=== PATIENT | male | born 1990 | race Caucasian/White ===

== ENCOUNTER 2019-03-06 11:07 | Observation (INO) ==
[2019-03-06] MEDS ORDERED: SODIUM CHLORIDE 0.9% 1000ML 2,000 ML IV ONE (11:35)
[2019-03-06 12:02] LABS: Basophils # (auto) 0.04 K/uL (0-0.2); Basophils % (auto) 0.4 %; Eosinophils # (auto) 0.06 K/uL (0-0.5); Eosinophils % (auto) 0.7 %; Hematocrit (blood only) 44.8 % (42-52); Hemoglobin 15.9 g/dL (14.0-18.0); Immature Granulocytes # (auto) 0.02 K/uL (0.00-0.02); Immature Granulocytes % (auto) 0.2 %; Lymphocytes % (auto) 20.6 %; Mean Corpuscular Hemoglobin 31.5 pg (25-34); Mean Corpuscular Hgb Conc 35.5 g/dL (32-36); Mean Corpuscular Volume 88.7 fL (80-100); Mean Platelet Volume 9.7 fL (7.4-10.4); Monocytes # (auto) 0.57 K/uL (0.11-0.59); Monocytes % (auto) 6.2 %; Neutrophils # (auto) 6.64 K/uL (1.4-6.5); Neutrophils % (auto) 71.9 %; Platelet Count 327 K/uL (130-400); RDW Coefficient of Variation 12.5 % (11.5-14.5); RDW Standard Deviation 39.7 fL (36.4-46.3); Red Blood Count 5.05 M/uL (4.7-6.1); White Blood Count 9.23 K/uL (4.8-10.8)
[2019-03-06 12:22] LABS: Albumin Level 4.4 gm/dl (3.4-5.0); BUN Creatinine Ratio 12.1 (10-20); Calcium 9.2 mg/dl (8.5-10.1); Creatinine Clr Calc Pharmacy 119.3 ml/min; Est GFR (African American) 107.7; Est GFR (Non-African American) 92.9; Potassium 3.8 mmol/L (3.5-5.1)
[2019-03-06 12:24] LABS: Albumin Globulin Ratio 1.2 (0.9-2); Bilirubin,Total 0.6 mg/dl (0.2-1); Globulin 3.6 gm/dl (2.5-4.0)
[2019-03-06] MEDS ORDERED: IOVERSOL 100ml IV PRN (13:01)
--- NOTE | 2019-03-06 13:19 | CT Scan Report ---
CT OF THE ABDOMEN AND PELVIS WITH CONTRAST CLINICAL HISTORY: Abdominal pain. GI bleed. Recent scope. COMPARISON STUDY: None. TECHNIQUE: Following IV administration of 93 mL of Optiray-320, axial images of the abdomen and pelvi s were obtained from the lung bases to the proximal femurs. Images were reviewed in the axial, sagitt al, and coronal planes. IV contrast was administered without complication. Automated exposure contro l was utilized for the study. A dose lowering technique was utilized adhering to the principles of A JORGE LUIS. CT DOSE: 993.50 mGycm FINDINGS: Lung bases are unremarkable. No pneumatosis, free air or portal venous gas is present. The liver, spleen, adrenal glands, kidneys and pancreas are normal. There is no biliary or pancreatic ermias damian dilatation. Caliber and wall thickness of small and large bowel are normal. No intraluminal contr ast extravasation is identified on this exam. The appendix is normal. There is no hydronephrosis. Harley or vasculature is patent. No suspicious osseous lesions are noted. There is no lymphadenopathy. IMPRESSION: Unremarkable CT of the abdomen and pelvis. ACT 112: Negative or not required by law. Electronically signed by: Leonel Ward M.D. 03/06/2019 1:17 PM
[2019-03-06] MEDS ORDERED: PANTOprazole 80 MG in DEXTROSE 5% 100 ML IV ONE (14:00)
--- NOTE | 2019-03-06 14:13 | Emergency Department Note ---
Entered by Kayla Tyson acting as a scribe for Tito Hoffmann DO History of Present Illness General Chief complaint: Rectal Bleed Stated complaint: BLOOD IN STOOL Source: patient History of Present Illness Onset (ago): day(s) 2 Location: head (rectal bleeding) Pain Consistency: + other (persistent) Quality: + other (rectal bleeding) Relieved By: + other (bowel movement relieved abdominal pain) Associated symptoms: + other (Positive blood around stool, straining while going to bathroom, dark stool, abdominal pain. Negative dysuria, polyuria, rhinorrhea.); no cough and no shortness of breath The patient is a 28 year old male presenting to the Emergency Department complaining of a persistent rectal bleeding starting 2 days ago. The patient reports that he noticed blood around his stool 2 days ago after a bowel movement. He states that he was straining to go to the bathroom during that episode. He explains that he was also nauseous at that time. He notes that he had lower abdominal pain 2 days ago and that having a bowel movement resolved his abdominal pain. 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 He states that he didnt strain during this bowel movement. He notes that he has an esophageal scope and biopsy done 1 week ago. The patient denies dysuria, polyuria, cough, rhinorrhea and shortness of breath. Home Medications Home Medications Medication Instructions Recorded Confirmed Type cetirizine 10 mg PO QAM 03/06/19 03/06/19 History pantoprazole [Protonix] 40 mg PO BIDM 03/06/19 03/06/19 History Allergies Allergy/AdvReac Type Severity Reaction Status Date / Time No Known Allergies Allergy Unverified 03/06/19 12:26 Past Med/Surg History Medical History Acid reflux Surgical History History of endoscopy Social History Preferred Language: [place] Feels Safe at Home: Yes Smoking Status: Never smoker Review of Systems See HPI for pertinent positives & negatives. and A total of 10 systems reviewed and were otherwise negative Physical Exam Vital Signs Vital Signs - 24 hr 03/06/19 11:18 03/06/19 11:57 03/06/19 12:53 Temperature 36.8 C Temperature Source Oral Pulse Rate 64 Pulse Rate [Right Finger] 80 Pulse Rhythm Regular Pulse Strength Normal Respiratory Rate 18 20 Respiratory Effort / Characteristics Non-Labored Spontaneous Non-Labored Respiratory Depth Normal Normal Respiratory Pattern Regular Blood Pressure 155/87 H Blood Pressure [Left Arm] 128/81 Blood Pressure Mean 109 Blood Pressure Mean [Left Arm] 96 Blood Pressure Position Sitting Pulse Oximetry 99 98 100 Oxygen Delivery Method Room Air Room Air Room Air Sepsis Recent Fever Within 48 Hours No Sepsis New/Unexplained Change in Mental Status No Sepsis Action Taken by Nursing No Action Required GENERAL: Patient is sitting up in bed. Alert, well nourished, no distress, non- toxic. EYE EXAM: normal conjunctiva. OROPHARYNX: no exudate, no erythema, lips, buccal mucosa, and tongue normal and mucous membranes are moist NECK: supple, no nuchal rigidity, no adenopathy, non-tender LUNGS: Clear to auscultation. Normal chest wall mechanics HEART: no murmurs, S1 normal and S2 normal ABDOMEN: abdomen soft, non-tender, normo-active bowel sounds, no masses, no rebound or guarding. RECTAL: Dark stool. Heme positive. BACK: Back is symmetrical on inspection and there is no deformity, no midline tenderness, no CVA tenderness. SKIN: no rashes and no bruising UPPER EXTREMITIES: upper extremities are grossly normal. LOWER EXTREMITIES: No pitting edema. NEURO EXAM: Normal sensorium, cranial nerves II-XII grossly intact, normal speech, no gross weakness of arms, no gross weakness of legs. Course Course ED COURSE: Vital signs were reviewed and showed hypertension. The patients medical record was reviewed The above diagnostic studies were performed and reviewed. ED treatments and interventions as stated above. 1131: The patient was evaluated in room B6. A complete history and physical examination was performed. 1230: I reevaluated the patient at this time. 1345: I discussed the patients case with Dr. Vincent GIBSON who recommends to keep the patient in the hospital. 1357: I discussed the patient's case with Dr. Юлия Veras hospitalist. He will evaluate the patient for further management. 1400: Upon reevaluation, I discussed my findings with the patient and he understands and agrees with the treatment plan. Based on the patients age, coexisting illnesses, exam and lab findings the decision to treat as an inpatient was made. The patient remained stable while under my care. The patient will be evaluated for further management. Administered Medications Ioversol (Optiray 320 100ml) 93 ml IV ONCE PRN PRN Reason: Interaction Checking Stop: 03/10/19 13:00 Last Admin: 03/06/19 13:02 Dose: 93 ml Documented by: [id number] Discontinued Medications Sodium Chloride (Nss 1000ml) 2,000 mls @ 999 mls/hr IV .Q2H1M ONE Stop: 03/06/19 13:35 Last Admin: 03/06/19 12:12 Dose: 999 mls/hr Documented by: [id number] Medical Decision Making Differential Diagnosis Differential diagnosis: Etiologies such as diverticulosis, AVM, coagulopathy, colitis, inflammatory bowel disease, malignancy, Kaitlynn-Early tear, esophagitis, peptic ulcer disease, variceal bleed, gastritis, epistaxis, fissure, hemorrhoids, aswell as others were entertained. Medical Records Attestation: I reviewed the patient's medical records. Home Medications Current Medication List: was personally reviewed by me Laboratory Data Attestation: I reviewed the patient's lab results. Result diagrams: 03/06/19 11:28 03/06/19 11:28 Lab Results 03/06/19 03/06/19 Range/Units 11:28 11:28 WBC 9.23 (4.8-10.8) K/uL RBC 5.05 (4.7-6.1) M/uL Hgb 15.9 (14.0-18.0) g/dL Hct 44.8 (42-52) % MCV 88.7 (80-100) fL MCH 31.5 (25-34) pg MCHC 35.5 (32-36) g/dL RDW Std Deviation 39.7 (36.4-46.3) fL RDW Coeff of John 12.5 (11.5-14.5) % Plt Count 327 (130-400) K/uL MPV 9.7 (7.4-10.4) fL Immature Gran % (Auto) 0.2 % Neut % (Auto) 71.9 % Lymph % (Auto) 20.6 % [place] % (Auto) 6.2 % Eos % (Auto) 0.7 % Baso % (Auto) 0.4 % Immature Gran # (Auto) 0.02 (0.00-0.02) K/uL Neut # (Auto) 6.64 H (1.4-6.5) K/uL Lymph # (Auto) 1.90 (1.2-3.4) K/uL [place] # (Auto) 0.57 (0.11-0.59) K/uL Eos # (Auto) 0.06 (0-0.5) K/uL Baso # (Auto) 0.04 (0-0.2) K/uL Sodium 138 (136-145) mmol/L Potassium 3.8 (3.5-5.1) mmol/L Chloride 105 (98-107) mmol/L Carbon Dioxide 27 (21-32) mmol/L Anion Gap 6.0 (3-11) BUN 13 (7-18) mg/dl Creatinine 1.08 (0.6-1.4) mg/dl Est Cr Clr Drug Dosing 119.3 ml/min Est GFR ( Amer) 107.7 Est GFR (Non-Af Amer) 92.9 BUN/Creatinine Ratio 12.1 (10-20) Glucose 107 H (70-99) mg/dl Calcium 9.2 (8.5-10.1) mg/dl Total Bilirubin 0.6 (0.2-1) mg/dl AST 10 L (15-37) U/L ALT 22 (12-78) U/L Alkaline Phosphatase 65 (45-117) U/L Total Protein 8.0 (6.4-8.2) gm/dl Albumin 4.4 (3.4-5.0) gm/dl Globulin 3.6 (2.5-4.0) gm/dl Albumin/Globulin Ratio 1.2 (0.9-2) Lipase 68 L (73-393) U/L Imaging Data Radiologist's Impression: Radiology results as stated below per my review and the radiologist's interpretation: CT OF THE ABDOMEN AND PELVIS WITH CONTRAST CLINICAL HISTORY: Abdominal pain. GI bleed. Recent scope. COMPARISON STUDY: None. TECHNIQUE: Following IV administration of 93 mL of Optiray-320, axial images of the abdomen and pelvis were obtained from the lung bases to the proximal femurs. Images were reviewed in the axial, sagittal, and coronal planes. IV contrast was administered without complication. Automated exposure control was utilized for the study. A dose lowering technique was utilized adhering to the principles of ALARA. CT DOSE: 993.50 mGycm FINDINGS: Lung bases are unremarkable. No pneumatosis, free air or portal venous gas is present. The liver, spleen, adrenal glands, kidneys and pancreas are normal. There is no biliary or pancreatic ductal dilatation. Caliber and wall thickness of small and large bowel are normal. No intraluminal contrast extravasation is identified on this exam. The appendix is normal. There is no hydronephrosis. Major vasculature is patent. No suspicious osseous lesions are noted. There is no lymphadenopathy. IMPRESSION: Unremarkable CT of the abdomen and pelvis. ACT 112: Negative or not required by law. Electronically signed by: Leonel Ward M.D. 03/06/2019 1:17 PM Blood Pressure Blood Pressure Findings: Elevated blood pressure Blood Pressure Disposition: further management by hospitalist LILIAN Narrative Patient is a 28-year-old male who presents the ER after having a hard bowel movement on Tuesday and having bright red blood per rectum. Gradually the stool has become darker and notes dark tarry stools now. IV was established blood work was obtained. Labs show no significant leukocytosis or anemia. BMP was unremarkable. LFTs bilirubin and lipase is unremarkable. Of note he had an upper endoscopy performed last week which was secondary to food bolus. He does believe that there were biopsies taken but does not believe that anything was dilated. Did request records but have not received them. With the dark tarry stools, heme positive and recent scope discussed with GI and they recommended observation consequently discussed with the hospitalist. Patient was updated bedside. Impression & Plan Upper gastrointestinal bleed, Abdominal pain Discharge Plan Visit Data Chief Complaint: Rectal Bleed Stated Complaint: BLOOD IN STOOL ED Provider: Tito Hoffmann Discharge Problem: Upper gastrointestinal bleed, Abdominal pain Patient Disposition: Being Evaluated by Hospitalist Forms Stand Alone Forms: 51edu Prescriptions Prescriptions: No Action cetirizine 10 mg Tablet 10 mg PO QAM RF: 0 pantoprazole [Protonix] 40 mg Tablet,Delayed Release (Dr/Ec) 40 mg PO BIDM RF: 0 Referrals Referrals: PCP,NO [Primary Care Provider] - Discharge Problem: Abdominal pain Qualifiers: Abdominal location: unspecified location Qualified Code(s): R10.9 - Unspecified abdominal pain The scribe's documentation has been prepared under my direction and personally reviewed by me in its entirety. I confirm that the note above accurately reflects all work, treatment, procedures, and medical decision making performed by me.
--- NOTE | 2019-03-06 14:54 | Gastrointestinal Consultation ---
Date of Consultation March 06, 2019 Assessment & Plan (1) Upper gastrointestinal bleed: 28 year old male presenting with melanotic stoosl, 4 episodes following EGD w/ food bolus and dilation at outside hospital. He is hemodynamically stable w/ stable HGB and without BUN elevation Pt is already admitted for observation Clear liquids NPO after mignight IV PPI bolus and drip Trend HGB Monitor and document GI output Transfuse PRN HGB < 8 Will follow. Thank you for allowing us to participate in the care of this patient. Please call with any acute changes, questions or concerns. Please see addendum below with additional recommendation from my supervising physician. Supervising Physician Co-Signing Physician Notes I performed a history and physical examination of the patient, including specifically on physical exam - soft, nontender abdomen. I have discussed the patient's management with Liv. Please refer to the nurse practitioner's note for the documented findings and plan of care. 28 yrs old male patient presenting with melena post recent EGD with dilation. Current H/H stable. Plan for EGD tomorrow. History of Present Illness Reason for Consultation: melena Requesting Physician: Shun Attending Physician: Юлия History of Present Illness 28 year old male without any past medical history who presents to [facility] w/ melena x 3 episodes starting today. Pt was seen and evaluated, chart reviewed. Family at [facility]. Notes about 1 week ago he presented to [place] with a food bolus. He underwent EGD w/ removal and dilation by Dr. Romano. Was discharged home without admission. Was started on a PPI. Three days ago developed epigastric abd pain, mild nausea but no vomiting. Suggests last evening had urge for BM and noted dark, tarry stool. Has since passed three episdoes of melanotic stools. No lightheadedness, dizziness, CP, SOB. Allergies Allergy/AdvReac Type Severity Reaction Status Date / Time No Known Allergies Allergy Unverified 03/06/19 12:26 Home Medications Home Medications Medication Instructions Recorded Confirmed Type cetirizine 10 mg PO QAM 03/06/19 03/06/19 History pantoprazole [Protonix] 40 mg PO BIDM 03/06/19 03/06/19 History Patient History Medical History Acid reflux Surgical History History of endoscopy Social History Preferred Language: Occitan Beliefs That Will Affect Care: None Current Living Situation: Parent Other Information That Helps Us Care for You: No Feels Safe at Home: Yes Safety Concerns: Feels Safe At This Time Smoking Status: Never smoker Hx Alcohol Use: Yes Alcohol type: beer Hx Substance Use: No Review of Systems 2 Constitutional: no fever and no chills Respiratory: no cough and no dyspnea Cardiovascular: no chest pain and no dyspnea on exertion Gastrointestinal: + melena; no abdominal pain, no nausea, no vomiting and no blood in stools Physical Exam Constitutional: well developed and well nourished; no acute distress Respiratory: normal respiratory effort, lungs clear to auscultation Cardiovascular: Rate/Rhythm: regular rate and regular rhythm Gastrointestinal (Abdomen): normal bowel sounds, soft, nontender, no hepatosplenomegaly Skin: no rashes, warm and dry Results & Data Vital Signs (Past 12 Hours) Vital Signs Temp Pulse Pulse Resp BP BP Pulse Ox 03/06/19 12:53 80 20 128/81 100 03/06/19 11:57 98 03/06/19 11:18 36.8 C 64 18 155/87 H 99 Laboratory Results 03/06/19 03/06/19 Range/Units 11:28 11:28 WBC 9.23 (4.8-10.8) K/uL RBC 5.05 (4.7-6.1) M/uL Hgb 15.9 (14.0-18.0) g/dL Hct 44.8 (42-52) % MCV 88.7 (80-100) fL MCH 31.5 (25-34) pg MCHC 35.5 (32-36) g/dL RDW Std Deviation 39.7 (36.4-46.3) fL RDW Coeff of John 12.5 (11.5-14.5) % Plt Count 327 (130-400) K/uL MPV 9.7 (7.4-10.4) fL Immature Gran % (Auto) 0.2 % Neut % (Auto) 71.9 % Lymph % (Auto) 20.6 % [place] % (Auto) 6.2 % Eos % (Auto) 0.7 % Baso % (Auto) 0.4 % Immature Gran # (Auto) 0.02 (0.00-0.02) K/uL Neut # (Auto) 6.64 H (1.4-6.5) K/uL Lymph # (Auto) 1.90 (1.2-3.4) K/uL [place] # (Auto) 0.57 (0.11-0.59) K/uL Eos # (Auto) 0.06 (0-0.5) K/uL Baso # (Auto) 0.04 (0-0.2) K/uL Sodium 138 (136-145) mmol/L Potassium 3.8 (3.5-5.1) mmol/L Chloride 105 (98-107) mmol/L Carbon Dioxide 27 (21-32) mmol/L Anion Gap 6.0 (3-11) BUN 13 (7-18) mg/dl Creatinine 1.08 (0.6-1.4) mg/dl Est Cr Clr Drug Dosing 119.3 ml/min Est GFR ( Amer) 107.7 Est GFR (Non-Af Amer) 92.9 BUN/Creatinine Ratio 12.1 (10-20) Glucose 107 H (70-99) mg/dl Calcium 9.2 (8.5-10.1) mg/dl Total Bilirubin 0.6 (0.2-1) mg/dl AST 10 L (15-37) U/L ALT 22 (12-78) U/L Alkaline Phosphatase 65 (45-117) U/L Total Protein 8.0 (6.4-8.2) gm/dl Albumin 4.4 (3.4-5.0) gm/dl Globulin 3.6 (2.5-4.0) gm/dl Albumin/Globulin Ratio 1.2 (0.9-2) Lipase 68 L (73-393) U/L
[2019-03-06] MEDS: PANTOprazole 40 MG in DEXTROSE 5% 100 ML IV SCH ×2 (14:55→20:39)
--- NOTE | 2019-03-06 14:58 | History & Physical Report ---
Date of Service March 06, 2019 Assessment & Plan (1) Melena: 28-year-old male with history of asthma presenting with melena which started this morning. MELENA, POSSIBLE UPPER GI BLEED No history of gastritis, ulcers, inflammatory bowel disease; denies NSAID use, not on aspirin,or any anticoagulation Status post endoscopy a week ago for food bolus, performed at [facility], mild inflammation was seen, but biopsy performed was unrevealing as reported to patient over the phone Possible etiologies of GI bleed; Kaitlynn-Early tear, bleeding from biopsy site Currently hemodynamically stable Hemoglobin 15 CT abdomen and pelvis:Unremarkable CT of the abdomen and pelvis. will keep patient n.p.o., start IV Protonix drip, D5 NSS + potassium, H&H every 6 hours Discussed with GI service, agree with above plan of care, possible EGD during this admission Monitor in Med/Surg with telemetry HISTORY OF ASTHMA Not in exacerbation Not using bronchodilators for the past year DVT prophylaxis SCDs only in light of possible GI bleed CODE STATUS full code confirmed with patient Disposition Anticipate discharge to home medically stable, cleared by GI Case discussed with patient and his mother at the bedside in detail, and at length All questions answered They are understanding, comfortable, agreeable with the plan of care History of Present Illness 28-year-old male with history of asthma presenting with melena which started this morning. History obtained from patient and his mother at the bedside. Patient presented to the [place] emergency room last week for a food bolus and subsequently underwent an EGD. As per patient and his mother who supplemented the history, a piece of meat was retrieved, and inflammation was noted but otherwise the esophagus and stomach looked fine. A biopsy was also performed, and patient was informed that it was 'negative'. Patient was discharged from the hospital and was doing fine since the procedure until 2 days ago when the patient started to have intermittent epigastric pain with no other associated symptoms. This morning, the patient noticed black stools with 2 bowel movements. Denies pain with bowel movement , diarrhea. No fevers no chills, no nausea vomiting, no loss of appetite. Denies any other symptoms. The patient was received hemodynamically stable at the ER. Hemoglobin is 15. CT abdomen and pelvis unrevealing. Hemoccult positive as per ER physician. He was started on Protonix drip. On exam, the patient is seen sitting up in bed, comfortable, not in distress. Denies active abdominal pain, nausea. He had a bowel movement at the emergency room which was still black. No other symptoms Primary Care Provider: NO PCP Allergies Allergy/AdvReac Type Severity Reaction Status Date / Time No Known Allergies Allergy Unverified 03/06/19 12:26 Home Medications Home Medications Medication Instructions Recorded Confirmed Type cetirizine 10 mg PO QAM 03/06/19 03/06/19 History pantoprazole [Protonix] 40 mg PO BIDM 03/06/19 03/06/19 History Past Med/Surg History Medical History Acid reflux Surgical History History of endoscopy Social History Preferred Language: [place] Feels Safe at Home: Yes Smoking Status: Never smoker Review of Systems Review of Systems: All systems reviewed & are unremarkable except as noted in HPI & below Physical Exam Physical Exam: General- oriented x 3, not in distress, speaks in sentences with no effort or accessory muscle use Head- atraumatic Eyes- PERRL, EOMI, anicteric ENT- oropharynx clear Neck- supple, no JVD, no adenopathy, no thyromegaly; carotids +2/2, no bruits appreciated Lungs- clear to auscultation bilaterally, no rales/wheezes Heart- normal rate, regular rhythm; no murmur, no gallop, no rub appreciated Abdomen- normal bowel sounds, nondistended, soft, nontender, no masses or hepatosplenomegaly Extremities- no pretibial edema, no calf tenderness; peripheral pulses intact Neuro- alert, oriented x 3; CN 2-12 grossly intact; motor 5/5 bilaterally;sensation 100% on all extremities; no other gross focal neurologic deficits Skin- warm & dry Results & Data Vital Signs (Past 12 Hours) Vital Signs Temp Pulse Pulse Resp BP BP Pulse Ox 03/06/19 12:53 80 20 128/81 100 03/06/19 11:57 98 03/06/19 11:18 36.8 C 64 18 155/87 H 99 Laboratory Results Laboratory Results - last 24 hr 01/21/20 01/21/20 11:28 11:28 WBC 9.23 RBC 5.05 Hgb 15.9 Hct 44.8 MCV 88.7 MCH 31.5 MCHC 35.5 RDW Std Deviation 39.7 RDW Coeff of John 12.5 Plt Count 327 MPV 9.7 Immature Gran % (Auto) 0.2 Neut % (Auto) 71.9 Lymph % (Auto) 20.6 [place] % (Auto) 6.2 Eos % (Auto) 0.7 Baso % (Auto) 0.4 Immature Gran # (Auto) 0.02 Neut # (Auto) 6.64 H Lymph # (Auto) 1.90 [place] # (Auto) 0.57 Eos # (Auto) 0.06 Baso # (Auto) 0.04 Sodium 138 Potassium 3.8 Chloride 105 Carbon Dioxide 27 Anion Gap 6.0 BUN 13 Creatinine 1.08 Est Cr Clr Drug Dosing 119.3 Est GFR ( Amer) 107.7 Est GFR (Non-Af Amer) 92.9 BUN/Creatinine Ratio 12.1 Glucose 107 H Calcium 9.2 Total Bilirubin 0.6 AST 10 L ALT 22 Alkaline Phosphatase 65 Total Protein 8.0 Albumin 4.4 Globulin 3.6 Albumin/Globulin Ratio 1.2 Lipase 68 L Code Status & VTE Plan VTE Prophylaxis Plan VTE Prophylaxis will be ordered: Yes
[2019-03-06] MEDS ORDERED: ONDANSETRON INJ 2 MG/ML 2 ML VIAL IV PRN (15:45)
[2019-03-06] MEDS: D5NSS + 20MEQ KCL 20 MEQ/1,000 ML BAG IV SCH (16:49)
[2019-03-06 17:15] LABS: Hemoglobin 14.9 g/dL (14.0-18.0)
[2019-03-06 18:11] LABS: Appearance Urine Clear (Clear); Bilirubin Urine Negative (Negative); Blood Urine Negative (Negative); Color Urine Yellow; Glucose Urine UA Negative (Negative); Ketones Urine Negative (Negative); Leukocyte Esterase Urine Negative (Negative); Nitrite Urine Negative (Negative); Protein Urine Negative (Negative); Specific Gravity Urine 1.022 (1.000-1.030); Urobilinogen Urine Negative (Negative); pH Urine 7.5 (4.5-7.5)
[2019-03-06 23:10] LABS: Hematocrit (blood only) 40.2 % (42-52); Hemoglobin 14.1 g/dL (14.0-18.0)
[2019-03-07] MEDS: D5NSS + 20MEQ KCL 20 MEQ/1,000 ML BAG IV SCH ×2 (00:48→08:51)
[2019-03-07] MEDS: PANTOprazole 40 MG in DEXTROSE 5% 100 ML IV SCH ×3 (01:43→11:23)
[2019-03-07 05:51] LABS: Hematocrit (blood only) 41.6 % (42-52); Hemoglobin 14.5 g/dL (14.0-18.0)
--- NOTE | 2019-03-07 09:15 | Gastroenterology Progress Note ---
Date of Service March 07, 2019 Assessment & Plan (1) Upper gastrointestinal bleed: 28 year old male presenting with melanotic stoosl, 4 episodes following EGD w/ food bolus and dilation at outside hospital. He is hemodynamically stable w/ stable HGB and without BUN elevation NPO EGD today Will follow. Thank you for allowing us to participate in the care of this patient. Please call with any acute changes, questions or concerns. Please see addendum below with additional recommendation from my supervising physician. Supervising Physician Co-Signing Physician Notes I performed a history and physical examination of the patient, including specifically on physical exam - soft, nontender abdomen. I have discussed the patient's management with Liv. Please refer to the nurse practitioner's note for the documented findings and plan of care. EGD today. Subjective Feeling well No acute events No nausea/vomiting No further BM HGB stable Review of Systems Constitutional: no fever Respiratory: no cough and no dyspnea Cardiovascular: no chest pain and no radiating jaw, neck or arm pain Gastrointestinal: no abdominal pain and no melena Physical Exam Constitutional: well developed and well nourished; no acute distress Respiratory: normal respiratory effort, lungs clear to auscultation Cardiovascular: Rate/Rhythm: regular rate and regular rhythm Gastrointestinal (Abdomen): normal bowel sounds, soft, nontender, no hepatosplenomegaly Skin: no rashes, warm and dry Results & Data Vital Signs (Past 12 Hours) Vital Signs Temp Pulse Pulse Resp BP Pulse Ox 03/07/19 07:59 57 L 03/07/19 06:38 36.7 C 60 20 118/74 98 03/07/19 03:48 36.4 C L 50 L 20 122/75 99 03/07/19 00:00 36.8 C 51 L 50 L 19 105/65 97 Laboratory Results 03/07/19 03/06/19 03/06/19 Range/Units 05:25 22:45 18:00 WBC (4.8-10.8) K/uL RBC (4.7-6.1) M/uL Hgb 14.5 14.1 (14.0-18.0) g/dL Hct 41.6 L 40.2 L (42-52) % MCV (80-100) fL MCH (25-34) pg MCHC (32-36) g/dL RDW Std Deviation (36.4-46.3) fL RDW Coeff of John (11.5-14.5) % Plt Count (130-400) K/uL MPV (7.4-10.4) fL Immature Gran % (Auto) % Neut % (Auto) % Lymph % (Auto) % [place] % (Auto) % Eos % (Auto) % Baso % (Auto) % Immature Gran # (Auto) (0.00-0.02) K/uL Neut # (Auto) (1.4-6.5) K/uL Lymph # (Auto) (1.2-3.4) K/uL [place] # (Auto) (0.11-0.59) K/uL Eos # (Auto) (0-0.5) K/uL Baso # (Auto) (0-0.2) K/uL Sodium (136-145) mmol/L Potassium (3.5-5.1) mmol/L Chloride (98-107) mmol/L Carbon Dioxide (21-32) mmol/L Anion Gap (3-11) BUN (7-18) mg/dl Creatinine (0.6-1.4) mg/dl Est Cr Clr Drug Dosing ml/min Est GFR ( Amer) Est GFR (Non-Af Amer) BUN/Creatinine Ratio (10-20) Glucose (70-99) mg/dl Calcium (8.5-10.1) mg/dl Total Bilirubin (0.2-1) mg/dl AST (15-37) U/L ALT (12-78) U/L Alkaline Phosphatase (45-117) U/L Total Protein (6.4-8.2) gm/dl Albumin (3.4-5.0) gm/dl Globulin (2.5-4.0) gm/dl Albumin/Globulin Ratio (0.9-2) Lipase (73-393) U/L Urine Color Yellow Urine Appearance Clear (Clear) Urine pH 7.5 (4.5-7.5) Ur Specific [place] 1.022 (1.000-1.030) Urine Protein Negative (Negative) Urine Glucose (UA) Negative (Negative) Urine Ketones Negative (Negative) Urine Blood Negative (Negative) Urine Nitrite Negative (Negative) Urine Bilirubin Negative (Negative) Urine Urobilinogen Negative (Negative) Ur Leukocyte Esterase Negative (Negative) 03/06/19 03/06/19 03/06/19 Range/Units 16:47 11:28 11:28 WBC 9.23 (4.8-10.8) K/uL RBC 5.05 (4.7-6.1) M/uL Hgb 14.9 15.9 (14.0-18.0) g/dL Hct 43.0 44.8 (42-52) % MCV 88.7 (80-100) fL MCH 31.5 (25-34) pg MCHC 35.5 (32-36) g/dL RDW Std Deviation 39.7 (36.4-46.3) fL RDW Coeff of John 12.5 (11.5-14.5) % Plt Count 327 (130-400) K/uL MPV 9.7 (7.4-10.4) fL Immature Gran % (Auto) 0.2 % Neut % (Auto) 71.9 % Lymph % (Auto) 20.6 % [place] % (Auto) 6.2 % Eos % (Auto) 0.7 % Baso % (Auto) 0.4 % Immature Gran # (Auto) 0.02 (0.00-0.02) K/uL Neut # (Auto) 6.64 H (1.4-6.5) K/uL Lymph # (Auto) 1.90 (1.2-3.4) K/uL [place] # (Auto) 0.57 (0.11-0.59) K/uL Eos # (Auto) 0.06 (0-0.5) K/uL Baso # (Auto) 0.04 (0-0.2) K/uL Sodium 138 (136-145) mmol/L Potassium 3.8 (3.5-5.1) mmol/L Chloride 105 (98-107) mmol/L Carbon Dioxide 27 (21-32) mmol/L Anion Gap 6.0 (3-11) BUN 13 (7-18) mg/dl Creatinine 1.08 (0.6-1.4) mg/dl Est Cr Clr Drug Dosing 119.3 ml/min Est GFR ( Amer) 107.7 Est GFR (Non-Af Amer) 92.9 BUN/Creatinine Ratio 12.1 (10-20) Glucose 107 H (70-99) mg/dl Calcium 9.2 (8.5-10.1) mg/dl Total Bilirubin 0.6 (0.2-1) mg/dl AST 10 L (15-37) U/L ALT 22 (12-78) U/L Alkaline Phosphatase 65 (45-117) U/L Total Protein 8.0 (6.4-8.2) gm/dl Albumin 4.4 (3.4-5.0) gm/dl Globulin 3.6 (2.5-4.0) gm/dl Albumin/Globulin Ratio 1.2 (0.9-2) Lipase 68 L (73-393) U/L Urine Color Urine Appearance (Clear) Urine pH (4.5-7.5) Ur Specific [place] (1.000-1.030) Urine Protein (Negative) Urine Glucose (UA) (Negative) Urine Ketones (Negative) Urine Blood (Negative) Urine Nitrite (Negative) Urine Bilirubin (Negative) Urine Urobilinogen (Negative) Ur Leukocyte Esterase (Negative)
[2019-03-07 11:08] LABS: Hematocrit (blood only) 43.2 % (42-52)
--- NOTE | 2019-03-07 12:15 | Anesthesiology Consultation ---
Date of Service March 07, 2019 Assessment & Plan (1) Encounter for pre-operative examination: Chart Review Chart Review: Acceptable Risk for Surgery and Patient NOT seen in Pre Admission Testing Consults Requested none History Surgery Operation Date: 03/07/19 15:30 Proposed Procedures p Esophagogastroduodenoscopy Dr Hinkle - Lashon Hinkle MD Height/Weight Height: 5 ft 9 in Weight: 99.8 kg Allergies Allergy/AdvReac Type Severity Reaction Status Date / Time No Known Allergies Allergy Unverified 03/06/19 12:26 Medications Home Medications Medication Instructions Recorded Confirmed Last Taken cetirizine 10 mg PO QAM 03/06/19 03/06/19 03/06/19 pantoprazole [Protonix] 40 mg PO BIDM 03/06/19 03/06/19 03/06/19 Active Medications Generic Name Dose Route Start Last Admin Trade Name Freq PRN Reason Stop Dose Admin Pantoprazole Sodium 40 mg/ 100 mls @ 20 mls/hr 03/06/19 14:15 03/07/19 11:23 Dextrose IV 04/05/19 14:14 20 mls/hr Q5H CHRISTEL Administration Potassium Chloride/Dextrose/Sod Cl 20 meq in 1,000 mls @ 125 mls/hr 03/06/19 16:00 03/07/19 08:51 D5nss + 20meq Kcl IV 04/05/19 15:59 125 mls/hr .Q8H CHRISTEL Administration Past Medical History Medical History Acid reflux Past Surgical History Surgical History History of endoscopy Social History Smoking Status: Never smoker Hx Alcohol Use: Yes Alcohol type: beer alcohol intake frequency: a few times a month Hx Substance Use: No Physical Exam Vital Signs Last Vital Signs Temp 36.7 C 03/07/19 06:38 Pulse 57 L 03/07/19 07:59 Resp 20 03/07/19 06:38 BP 118/74 03/07/19 06:38 Pulse Ox 98 03/07/19 06:38 Testing Laboratory Results 03/07/19 10:54 03/06/19 11:28 Urine Color Yellow 03/06/19 18:00 Urine Appearance Clear (Clear) 03/06/19 18:00 Urine pH 7.5 (4.5-7.5) 03/06/19 18:00 Ur Specific [place] 1.022 (1.000-1.030) 03/06/19 18:00 Urine Protein Negative (Negative) 03/06/19 18:00 Urine Glucose (UA) Negative (Negative) 03/06/19 18:00 Urine Ketones Negative (Negative) 03/06/19 18:00 Urine Nitrite Negative (Negative) 03/06/19 18:00 Ur Leukocyte Esterase Negative (Negative) 03/06/19 18:00
[2019-03-07] MEDS ORDERED: ATROPINE SULFATE 0.1 MG/ML 10ML SYR IV PRN (12:16)
[2019-03-07] MEDS ORDERED: ePHEDrine sulfate 50 MG/ML AMP IV PRN (12:16)
[2019-03-07 12:17] VITALS: TEMP 97.7
[2019-03-07] MEDS ORDERED: MIDAZOLAM HCL 1 MG/ML 2ML VIAL ONE (12:37)
[2019-03-07] MEDS ORDERED: LIDOCAINE HCL 2% 2 ML VIAL/AMP(20MG/ML) INFIL ONE (12:41)
[2019-03-07] MEDS ORDERED: PROPOFOL IV EMULSION 10 MG/ML 20 ML VIAL IV ONE (12:42)
[2019-03-07] MEDS ORDERED: ONDANSETRON INJ 2 MG/ML 2 ML VIAL ONE (12:43)
--- NOTE | 2019-03-07 12:45 | History & Physical Bridge Note ---
Date of Service March 07, 2019 History & Physical Bridge Note I have examined the patient, reviewed the History & Physical and in the interval since the performance of the History & Physical I have noted the following changes of clinical significance: no changes noted
--- NOTE | 2019-03-07 13:09 | GI REPORT ---
Patient Name: Arun Echols Procedure Date: 03/07/2019 12:47 PM Date of : 1990 Admit Type: Inpatient Age: 28 Gender: Male Attending MD: Lashon Hinkle MD Procedure: Upper GI endoscopy Providers: Lashon Hinkle MD Referring MD: Oziel Sanders Indications: Melena Medicines: Propofol per Anesthesia Complications: No immediate complications. Estimated Blood Loss: Estimated blood loss: none. Procedure: Pre-Anesthesia Assessment: - Prior to the procedure, a History and Physical was performed, and patient medications, allergies and sensitivities were reviewed. The patient's tolerance of previous anesthesia was reviewed. - The risks and benefits of the procedure and the sedation options and risks were discussed with the patient. All questions were answered and informed consent was obtained. - Patient identification and proposed procedure were verified prior to the procedure by the physician and the nurse. The procedure was verified in the procedure room. - Pre-procedure physical examination revealed no contraindications to sedation. After obtaining informed consent, the endoscope was passed under direct vision. Throughout the procedure, the patient's blood pressure, pulse, and oxygen saturations were monitored continuously. The Endoscope was introduced through the mouth, and advanced to the second part of duodenum. The upper GI endoscopy was accomplished without difficulty. The patient tolerated the procedure well. Findings: Mucosal changes including ringed esophagus and longitudinal furrows were found in the entire esophagus. The entire examined stomach was normal. The duodenal bulb and second portion of the duodenum were normal. Impression: - No evidence of upper GI bleeding. - Esophageal mucosal changes suggestive of eosinophilic esophagitis. - Normal stomach. - Normal duodenal bulb and second portion of the duodenum. - No specimens collected. Recommendation: - [facility]. - Schedule a colonoscopy as OP. - Recall GI if needed. Lashon Hinkle MD 03/07/2019 1:09:02 PM This report has been signed electronically. Note Initiated On: 03/07/2019 12:47 PM Number of Addenda: 0 I attest to the content of the Intraoperative Record and orders documented therein, exceptions below {[id number]}
[2019-03-07 13:42] VITALS: O2SAT 99
[2019-03-07 13:43] VITALS: BP 128/68; PULSE 83
--- NOTE | 2019-03-07 14:29 | Hospitalist Progress Note ---
Date of Service March 07, 2019 Assessment & Plan (1) GI bleed: Patient presented with melena. EGD performed last week for food impaction. H&H stable. Hemodynamically stable. EGD performed today did not show any upper GI pathology. May have had esophageal tear related to food impaction. Outpatient colonoscopy recommended. (2) DVT prophylaxis: Low risk for VTE per IMPROVE Risk Assessment Model. VTE prophylaxis not indicated. (3) Discharge planning issues: Discharged home. Patient is arranging to see a new PCP. He was asked to make an appointment to be seen within 1 week and to have a H&H rechecked at that time. Subjective Recheck for suspected GI bleed. Patient seen in their room around 1020 and reassessed in the afternoon. No abdominal pain, nausea, vomiting, melena, hematochezia. EGD did not show any upper GI pathology. Physical Exam Constitutional: no acute distress Respiratory: no respiratory distress Auscultation: lungs clear to auscultation bilaterally Cardiovascular: Rate/Rhythm: regular rate and regular rhythm Heart Sounds: no gallop, no murmur and no cardiac rub Vessels: no JVD Extremities: no calf tenderness and no edema Gastrointestinal (Abdomen): normal bowel sounds, soft, nontender, no hepatosplenomegaly Skin: no rashes, warm and dry Psychiatric: Orientation: alert and oriented x 3 Results & Data Vital Signs (Past 12 Hours) Vital Signs Temp Pulse Pulse Resp BP Pulse Ox 03/07/19 13:42 83 16 128/68 99 03/07/19 13:30 63 16 118/83 99 03/07/19 13:12 50 L 16 118/61 96 03/07/19 12:14 36.5 C 57 L 16 138/89 99 03/07/19 07:59 57 L 03/07/19 06:38 36.7 C 60 20 118/74 98 03/07/19 03:48 36.4 C L 50 L 20 122/75 99 Laboratory Results Hemoglobin 14.5
--- NOTE | 2019-03-07 14:38 | Anesthesiology Progress Note ---
Date of Service March 07, 2019 Anesthesia Post Procedure Vital Signs Vital Signs: Temp Pulse Pulse Resp BP BP Pulse Ox 03/07/19 13:42 83 16 128/68 99 03/07/19 13:30 63 16 118/83 99 03/07/19 13:12 50 L 16 118/61 96 03/07/19 12:14 36.5 C 57 L 16 138/89 99 03/07/19 07:59 57 L 03/07/19 06:38 36.7 C 60 20 118/74 98 03/07/19 03:48 36.4 C L 50 L 20 122/75 99 03/07/19 00:00 36.8 C 51 L 50 L 19 105/65 97 03/06/19 19:11 36.9 C 56 L 16 143/83 H 99 03/06/19 17:35 61 03/06/19 15:36 36.8 C 58 L 16 125/83 95 03/06/19 15:10 61 21 98 03/06/19 15:01 71 20 99 03/06/19 15:00 69 19 124/82 98 03/06/19 14:50 68 22 98 03/06/19 14:40 66 16 99 03/06/19 14:39 72 19 136/83 99 Transfer of Care Handoff Completed per policy Notes Mental Status: alert / awake / arousable Patient Amnestic to Procedure: Yes Nausea / Vomiting: adequately controlled Pain: adequately controlled Airway Patency, RR, SpO2: stable & adequate BP & HR: stable & adequate Hydration State: stable & adequate Anesthetic Complications: no major complications apparent and Pt Satisfied with anesthetic care
--- NOTE | 2019-03-08 06:27 | Discharge Summary ---
Date of Service March 08, 2019 Admission HPI Per Admitting Provider 28-year-old male with history of asthma presenting with melena which started this morning. History obtained from patient and his mother at the bedside. Patient presented to the [facility] emergency room last week for a food bolus and subsequently underwent an EGD. As per patient and his mother who supplemented the history, a piece of meat was retrieved, and inflammation was noted but otherwise the esophagus and stomach looked fine. A biopsy was also performed, and patient was informed that it was 'negative'. Patient was discharged from the hospital and was doing fine since the procedure until 2 days ago when the patient started to have intermittent epigastric pain with no other associated symptoms. This morning, the patient noticed black stools with 2 bowel movements. Denies pain with bowel movement , diarrhea. No fevers no chills, no nausea vomiting, no loss of appetite. Denies any other symptoms. The patient was received hemodynamically stable at the ER. Hemoglobin is 15. CT abdomen and pelvis unrevealing. Hemoccult positive as per ER physician. He was started on Protonix drip. On exam, the patient is seen sitting up in bed, comfortable, not in distress. Denies active abdominal pain, nausea. He had a bowel movement at the emergency room which was still black. No other symptoms Principal Diagnosis GI bleed Discharge Data Allergies Allergy/AdvReac Type Severity Reaction Status Date / Time No Known Allergies Allergy Unverified 03/06/19 12:26 Consultations 03/06/19 14:02 Consult Gastroenterology Stat ED Decision to Admit Stat 03/06/19 15:45 Consult Gastroenterology Routine Procedures Performed Operation Date: 03/07/19 15:30 Actual Procedures p Esophagogastroduodenoscopy - Lashon Hinkle MD Ordered Studies 03/06/19 11:35 CT abd pelvis IV con only Stat Hospital Course (1) GI bleed: Patient presented with melena. EGD performed last week for food impaction. H&H stable (15.9 --> 15.0). Remained hemodynamically stable. GI consulted. EGD performed 03/07/19 did not show any upper GI pathology. May have had esophageal tear related to food impaction. Outpatient colonoscopy recommended. (2) DVT prophylaxis: Low risk for VTE per IMPROVE Risk Assessment Model. VTE prophylaxis not indicated. (3) Discharge planning issues: Discharged home. Patient is arranging to see a new PCP. He was asked to make an appointment to be seen within 1 week and to have a H&H rechecked at that time. Total Time Total Time Spent Total Time Spent (In Minutes): 30 Discharge Plan Discharge Items Patient Disposition: Home - Self-Care Reason For Visit: dark stools, possible gastrointestinal bleeding Discharge Diagnosis: dark stools, possible gastrointestinal bleeding Condition on Discharge: Good Activity: Resume your previous activity Non-emergency contact: Primary Care Provider, Hospitalist and Beam Warper Call non-emergency contact if: you have any medication questions and your symptoms worsen Follow-up/Referrals: PCP,NO [Primary Care Provider] - Diet: Regular Addtl Attending Provider Instructions: MEDICATION CHANGES: Do not use any aspirin products or anti-inflammatory medicines like ibuprofen (Advil, Motrin) or naproxen (Aleve). SUMMARY OF TEST RESULTS: EGD (upper endoscopy) was normal. No ulcers or other problems were seen. RECOMMENDATIONS FOR FOLLOW-UP: Outpatient colonoscopy recommended. Please schedule appointment with your primary care provider within 1 week for recheck. Please ask them to check blood count (hemoglobin level). OTHER INSTRUCTIONS: Seek medical attention if you have: * temperature above 101 * chest pain or trouble breathing * abdominal pain, nausea, vomiting * diarrhea, dark stools or bloody stools * any unanswered questions or concerns Call 911 if symptoms are severe. Please take good care of yourself. Call if you have any questions or problems. You can reach a [facility] hospitalist on duty at [facility] 24 hours a day by calling [phone]. My cell # is [phone]. Pending Studies at Discharge: No Stand-Alone Forms: My [facility] [employer], Smoking Cessation Medications and DC Order Prescriptions: Continued cetirizine 10 mg Tablet 10 mg PO QAM RF: 0 pantoprazole [Protonix] 40 mg Tablet,Delayed Release (Dr/Ec) 40 mg PO BIDM RF: 0 Discharge Orders: Discharge Order (Routine); Ordered 03/07/19 Ordered By: Oziel Sanders Admission Data Admit Date/Time: 03/06/19 14:18 Attending Provider: Oziel Sanders Admit Provider: Dariusz Redman Primary Care Provider: PCP,NO Other Providers: Liv Cuadra ; Dariusz Redman ; Lashon Hinkle Other Interventions: Discharge Summary Assessment (RN) Last Done: 03/07/19 15:12 DC Date/Time DO NOT enter until pt leaves facility: 03/07/19 15:44
== END 2019-03-07 15:44 | disposition home or self-care (01) ==
LOC: 2W 11:07 → ED 11:07 → SUATTDRO 14:18 → 2W 15:24